=== PATIENT | female | born 1960 | race African-American/Black ===

== ENCOUNTER 2017-05-07 11:21 | Emergency (ER) | payer OTHER ==
[~2017-05-07] VITALS: Ht 167.6 cm; Wt 102.1 kg
[~2017-05-07 11:21] MED LIST: PHENERGAN6.25 MG/5 ORAL
[2017-05-07] MEDS ORDERED: Ranitidine 50mg/2ml Inj IV ONE (12:00)
[2017-05-07 12:34] LABS: APPEARANCE,URINE CLEAR; BASOPHILS % (AUTO) 1.6 % (0.0-2.0); EOSINOPHILS % (AUTO) 7.9 % (0.0-3.0); KETONES,URINE NEGATIVE (NEGATIVE); LEUKOCYTE ESTERASE ,URINE 1+ (NEGATIVE); LYMPHOCYTES % (AUTO) 46.8 % (20.0-45.0); MEAN CORPUSCULAR HEMOGLOBIN 29.8 PG (27.0-31.0); MEAN CORPUSCULAR HGB CONC 32.6 G/DL (32.0-36.0); MEAN CORPUSCULAR VOLUME 91 FL (80-99); MEAN PLATELET VOLUME 6.9 FL (6.5-10.1); MONOCYTES % (AUTO) 5.2 % (1.0-10.0); NEUTROPHILS % (AUTO) 38.6 % (45.0-75.0); NITRITE,URINE NEGATIVE (NEGATIVE); PH,URINE 8 (4.5-8.0); PLATELET COUNT 271 K/UL (150-450); PROTEIN,URINE NEGATIVE (NEGATIVE); RED BLOOD COUNT 4.58 M/UL (4.20-5.40); UROBILINOGEN,URINE 4 MG/DL (0.0-1.0)
[2017-05-07 12:50] LABS: BACTERIA,URINE FEW /HPF; RBC,URINE 0-2 /HPF (0 - 2); SQUAMOUS EPITHELIAL CELL,UR MODERATE /LPF (NONE/OCC)
[2017-05-07 12:51] VITALS: BP 103/78
[2017-05-07 13:04] LABS: ALANINE AMINOTRANSFERASE 30 U/L (3-33); ANION GAP 14 (5-15); ASPARTATE AMINO TRANSFERASE 30 U/L (5-40); CALCIUM 9.2 mg/dL (8.6-10.2); CARBON DIOXIDE 27 mEQ/L (20-30); CHLORIDE 99 mEQ/L (98-107); CREATININE 0.6 mg/dL (0.5-0.9); GLOMERULAR FILTRATION RATE > 60 mL/min (>60); HEMOLYSIS 9; LIPASE 33 U/L (< 60); POTASSIUM 3.9 mEQ/L (3.4-4.9); SODIUM 140 mEQ/L (135-145); TOTAL PROTEIN 7.6 g/dL (6.6-8.7)
[2017-05-07] MEDS ORDERED: ZOFRAN ODT4 MG ORAL (14:13)
[2017-05-07] MEDS ORDERED: TYLENOL EXTRA500 MG ORAL (14:13)
[2017-05-07 14:25] VITALS: BP 120/81
--- NOTE | 2017-05-07 16:43 | Diagnostic Imaging Report ---
Indication: Abdominal pain, nausea, vomiting x2 days Technique: [place]-scale and duplex images of the upper abdomen were obtained Comparison: Findings: Gallbladder demonstrates gallstones. No wall thickening or pericholecystic fluid. Technologist reports positive sonographic Sanders's sign. Common bile duct measures 7 mm in diameter. No intrahepatic biliary ductal dilatation. Liver demonstrates normal echogenicity, no focal abnormality. Portal vein and hepatic veins are patent. Pancreas is unremarkable. Spleen is unremarkable. Left kidney measures 13 cm in length. Right kidney measures 11.3 cm length. Both kidneys demonstrate normal echogenicity. There is no hydronephrosis. No focal abnormality . Abdominal aorta is partially obscured by bowel gas, visualized portions are non-aneurysmal . Impression: Cholelithiasis. Positive sonographic Sanders's sign raises possibility of acute cholecystitis. Correlate with clinical findings, consider hepatobiliary nuclear scan for further evaluation Mildly ectatic common bile duct. Downstream obstruction not completely excludable. Correlate with liver function tests, consider MRCP for further evaluation if clinically indicated Note incomplete visualization of the abdominal aorta
--- NOTE | 2017-05-08 15:36 | Emergency Room Report ---
History of Present Illness General Chief Complaint: Nausea Source: Patient Present Illness HPI 57-year-old female presents to ED complaining of abdominal pain nausea and vomiting since this morning. Start after she drank coffee. Pain is epigastric , 8 out of 10, sharp, radiating to the right side of abdomen. Patient has history of gastritis but states this feels different. Denies chest pain or shortness of breath. Denies fevers or chills. No other aggravating or relieving factors. Denies any other associated symptoms Allergies: Coded Allergies: ASPIRIN (Unverified Allergy, Unknown, 01/08/16) CODEINE (Unverified Allergy, Unknown, 01/08/16) PENICILLINS (Unverified Allergy, Unknown, 01/08/16) Uncoded Allergies: ASPRIN (Allergy, Unknown, 01/08/16) PENICILLIN (Allergy, Unknown, 01/08/16) Patient History Past Medical History: DM, GERD Past Surgical History: none Pertinent Family History: none Social History: Denies: alcohol use, drug use, smoking Last Menstrual Period: na Now: No Immunizations: UTD Reviewed Nursing Documentation: PMH: Agreed, PSxH: Agreed Nursing Documentation-PMH Past Medical History: No History, Except For Hx Diabetes: Yes Hx Gastrointestinal Problems: Yes - hyperthyroidism, reflux Review of Systems All Other Systems: negative except mentioned in HPI Physical Exam Vital Signs Date Time Temp Pulse Resp B/P Pulse Ox O2 Delivery O2 Flow Rate FiO2 05/07/17 11:32 98.2 79 18 124/83 99 Room Air Sp02 EP Interpretation: reviewed, normal General Appearance: no apparent distress, alert, GCS 15, non-toxic Head: normocephalic, atraumatic Eyes: bilateral eye PERRL, bilateral eye normal inspection ENT: hearing grossly normal, normal pharynx, no angioedema, normal voice Neck: full range of motion, supple/symm/no masses Respiratory: chest non-tender, lungs clear, normal breath sounds, speaking full sentences Cardiovascular #1: regular rate, rhythm, no edema Cardiovascular #2: 2+ carotid (R), 2+ carotid (L), 2+ radial (R), 2+ radial (L) , 2+ dorsalis pedis (R), 2+ dorsalis pedis (L) Gastrointestinal: normal bowel sounds, soft, non-distended, no guarding, no rebound, tenderness - RUQ Rectal: deferred Genitourinary: normal inspection, no CVA tenderness Musculoskeletal: back normal, gait/station normal, normal range of motion, non- tender Neurologic: alert, oriented x3, responsive, motor strength/tone normal, sensory intact, speech normal Psychiatric: judgement/insight normal, memory normal, mood/affect normal, no suicidal/homicidal ideation Reflexes: 3+ bicep (R), 3+ bicep (L), 3+ tricep (R), 3+ tricep (L), 3+ knee (R) , 3+ knee (L) Skin: normal color, no rash, warm/dry, well hydrated Lymphatic: no adenopathy Medical Decision Making Diagnostic Impression: Primary Impression: Cholelithiasis Qualified Codes: K80.80 - Other cholelithiasis without obstruction Additional Impression: Gastritis Qualified Codes: K29.00 - Acute gastritis without bleeding ER Course Hospital Course 57-year-old F presents to ED with RUQ abdominal pain, vomiting Differential diagnosis includes - pyelonephritis, kidney stone, gastritis, cholecystitis Clinical course Patient placed on stretcher. After initial history and physical I ordered labs , IV fluids, pain medications and US Labs - no leukocytosis, electrolytes ok, LFTs normal, UA unremarkable US shows gallstones, no GB thickening, negative murphys sign, CBD normal Upon reassessment, patient states pain has improved. I discussed with patient options for outpatient surgical referral given patient has had 3-4 episodes of pain. Recommend low-fat diet as fast food greasy food can trigger the symptoms I feel this is a highly complex case requiring extensive working including EKG/ Rhythm strip, Xray/CT/US, Blood/urine lab work, repeat exams while in ED, and administration of strong opiates/narcotics for pain control, admission to hospital or close patient follow up. Diagnosis - cholelithiasis, gastritis Stable and discharged to home with prescription for Tylenol, Zofran. Followup with PMD. Return to ED if symptoms recur or worsen Labs Test 05/07/17 12:15 White Blood Count 8.0 K/UL (4.8-10.8) Red Blood Count 4.58 M/UL (4.20-5.40) Hemoglobin 13.6 G/DL (12.0-16.0) Hematocrit 41.8 % (37.0-47.0) Mean Corpuscular Volume 91 FL (80-99) Mean Corpuscular Hemoglobin 29.8 PG (27.0-31.0) Mean Corpuscular Hemoglobin Concent 32.6 G/DL (32.0-36.0) Red Cell Distribution Width 11.0 % (11.6-14.8) Platelet Count 271 K/UL (150-450) Mean Platelet Volume 6.9 FL (6.5-10.1) Neutrophils (%) (Auto) 38.6 % (45.0-75.0) Lymphocytes (%) (Auto) 46.8 % (20.0-45.0) Monocytes (%) (Auto) 5.2 % (1.0-10.0) Eosinophils (%) (Auto) 7.9 % (0.0-3.0) Basophils (%) (Auto) 1.6 % (0.0-2.0) Urine Color Yellow Urine Appearance Clear Urine pH 8 (4.5-8.0) Urine Specific [place] 1.015 (1.005-1.035) Urine Protein Negative (NEGATIVE) Urine Glucose (UA) Negative (NEGATIVE) Urine Ketones Negative (NEGATIVE) Urine Occult Blood Negative (NEGATIVE) Urine Nitrite Negative (NEGATIVE) Urine Bilirubin Negative (NEGATIVE) Urine Urobilinogen 4 MG/DL (0.0-1.0) Urine Leukocyte Esterase 1+ (NEGATIVE) Urine RBC 0-2 /HPF (0 - 2) Urine WBC 2-4 /HPF (0 - 2) Urine Squamous Epithelial Cells Moderate /LPF (NONE/OCC) Urine Bacteria Few /HPF (NONE) Sodium Level 140 mEQ/L (135-145) Potassium Level 3.9 mEQ/L (3.4-4.9) Chloride Level 99 mEQ/L (98-107) Carbon Dioxide Level 27 mEQ/L (20-30) Anion Gap 14 (5-15) Blood Urea Nitrogen 4 mg/dL (7-23) Creatinine 0.6 mg/dL (0.5-0.9) Estimat Glomerular Filtration Rate > 60 mL/min (>60) Glucose Level 142 mg/dL (74-106) Calcium Level 9.2 mg/dL (8.6-10.2) Total Bilirubin 0.4 mg/dL (0.0-1.2) Aspartate Amino Transf (AST/SGOT) 30 U/L (5-40) Alanine Aminotransferase (ALT/SGPT) 30 U/L (3-33) Alkaline Phosphatase 82 U/L (35-104) Total Protein 7.6 g/dL (6.6-8.7) Albumin 3.8 g/dL (3.5-5.2) Globulin 3.8 g/dL Albumin/Globulin Ratio 1.0 (1.0-2.7) Lipase 33 U/L (< 60) CT/MRI/US Diagnostic Results CT/MRI/US Diagnostic Results : Imaging Test Ordered: Abd US Impression cholelithiasis, no cholecystitis Last Vital Signs Date Time Temp Pulse Resp B/P Pulse Ox O2 Delivery O2 Flow Rate FiO2 05/07/17 14:25 70 20 120/81 100 Room Air 05/07/17 12:51 97.1 Status: improved Disposition: HOME, SELF-CARE Condition: Stable Scripts Ondansetron Odt* (ZOFRAN ODT*) 4 Mg Tab.rapdis 4 MG ORAL Q6H Y for Nausea & Vomiting, #30 TAB 0 Refills Prov: EDGARDO MEIER M.D. 05/07/17 Acetaminophen* (TYLENOL EXTRA STRENGTH*) 500 Mg Tablet 500 MG ORAL Q8H Y for Prn Headache/Temp > 101, #30 TAB 0 Refills Prov: EDGARDO MEIER M.D. 05/07/17 Patient Instructions: Cholelithiasis, [id number] EDGARDO MEIER M.D. May 08, 2017 15:36
== END 2017-05-07 14:29 | disposition home or self-care (01) ==
LOC: EMR 12:10
DX: K80.80 Other cholelithiasis without obstruction (principal); K29.00 Acute gastritis without bleeding; Z88.6 Allergy status to analgesic agent; Z88.0 Allergy status to penicillin; E11.9 Type 2 diabetes mellitus without complications; K21.9 Gastro-esophageal reflux disease without esophagitis
CPT/HCPCS: 36415; 76700; 80053; 81003; 83690; 85025; 96360; 96374; 96375; 99284; J2405; J2780

== ENCOUNTER 2019-01-23 10:16 | Emergency (ER) | payer OTHER ==
[~2019-01-23] VITALS: Ht 170.2 cm; Wt 102.1 kg
[~2019-01-23 10:16] MED LIST changes: +TYLENOL EXTRA500 MG ORAL; +ZOFRAN ODT4 MG ORAL
[2019-01-23] MEDS ORDERED: TAMIFLU75 MG ORAL (10:25)
[2019-01-23] MEDS ORDERED: NEURONTIN300 MG ORAL (10:30)
[2019-01-23] MEDS ORDERED: LOSARTAN POTAS100 MG ORAL (10:30)
[2019-01-23] MEDS ORDERED: VENTOLIN HFA18 GM INH (10:30)
[2019-01-23] MEDS ORDERED: CYCLOBENZAPRIN7.5 MG ORAL (10:30)
[2019-01-23] MEDS ORDERED: OMEPRAZOLE20 M2 ORAL (10:30)
[2019-01-23] MEDS ORDERED: METHIMAZOLE10 MG PO (10:30)
[2019-01-23] MEDS ORDERED: LIPITOR80 MG ORAL (10:30)
[2019-01-23] MEDS ORDERED: Clindamycin 150mg cap ORAL ONE (10:45)
--- NOTE | 2019-01-23 10:47 | Emergency Room Report ---
History of Present Illness General Chief Complaint: Flu Like Symptoms Source: Patient Present Illness HPI Patient presents with complaints of sore throat cough and nasal congestion Reports that symptoms started on Friday She saw her primary physician who placed her on anti-flu medicine And cough medicine however she reports that the throat is worsening with pain especially with swallowing She feels that her voice is more hoarse Denies any chest pain She feels that her asthma is also flared up at times denies any vomiting Denies any recent travel Denies any neck pain or photophobia Allergies: Coded Allergies: ASPIRIN (Unverified Allergy, Unknown, 01/08/16) CODEINE (Unverified Allergy, Unknown, 01/08/16) PENICILLINS (Unverified Allergy, Unknown, 01/08/16) Uncoded Allergies: ASPRIN (Allergy, Unknown, 01/08/16) PENICILLIN (Allergy, Unknown, 01/08/16) Patient History Past Medical History: see triage record Pertinent Family History: none Now: No : 7 Reviewed Nursing Documentation: PMH: Agreed; PSxH: Agreed Nursing Documentation-PMH Hx Diabetes: Yes Hx Gastrointestinal Problems: Yes - hyperthyroidism, reflux Review of Systems All Other Systems: negative except mentioned in HPI Physical Exam Vital Signs Date Time Temp Pulse Resp B/P (MAP) Pulse Ox O2 Delivery O2 Flow Rate FiO2 01/23/19 10:21 98.2 96 19 119/73 95 Room Air Sp02 EP Interpretation: reviewed, normal General Appearance: no apparent distress Head: normocephalic, atraumatic Eyes: bilateral eye PERRL, bilateral eye EOMI ENT: no angioedema, uvula midline, pharyngeal erythema, other - Poor dentition and also adentulous in the front Neck: supple, no meningismus Respiratory: lungs clear, no retraction, no accessory muscle use Cardiovascular #1: regular rate, rhythm Gastrointestinal: non tender, soft Genitourinary: no CVA tenderness Musculoskeletal: normal inspection Neurologic: alert, oriented x3, cargo operations agent III-XII nml as tested Skin: normal color, no rash Lymphatic: no adenopathy Medical Decision Making Diagnostic Impression: Primary Impression: Pharyngitis ER Course Given the patient's history and presentation multiple differentials in consideration Including but not limited to retropharyngeal abscess peritonsillar abscess, pharyngitis, flu symptoms Given the patient's throat examination erythema Patient appears to have likely bacterial pharyngitis as well Patient has already been on Tamiflu and does not appear to be improving symptoms And will have attempt on antibiotics and close outpatient reevaluation Last Vital Signs Date Time Temp Pulse Resp B/P (MAP) Pulse Ox O2 Delivery O2 Flow Rate FiO2 01/23/19 10:21 98.2 96 19 119/73 95 Room Air Status: improved Disposition: HOME, SELF-CARE Condition: Improved Scripts Ibuprofen* (MOTRIN*) 600 Mg Tablet 600 MG ORAL Q8H PRN for For Pain, #20 TAB 0 Refills Prov: Rolan Kay DO 01/23/19 Clindamycin Hcl (CLINDAMYCIN HCL) 300 Mg Capsule 300 MG ORAL THREE TIMES A DAY, #21 CAP Prov: Rolan Kay DO 01/23/19 Additional Instructions: Patient is provided with the discharge instructions notified to follow up with primary doctor in the next 2-3 days otherwise return to the er with any worsening symptoms. Please note that this report is being documented using [employer] technology. This can lead to erroneous entry secondary to incorrect interpretation by the dictating instrument. Rolan Kay DO Jan 23, 2019 10:47
[2019-01-23] MEDS ORDERED: CLINDAMYCIN HC300 MG ORAL (10:48)
[2019-01-23] MEDS ORDERED: IBUPROFEN600 MG ORAL (10:48)
[2019-01-23 11:08] VITALS: BP 119/73
[2019-01-23 11:09] VITALS: BP 119/73
--- NOTE | 2019-01-23 11:09 | NUR ---
ED Nurse Note:pt. came with flu like symptoms cough and sore throat, given po meds
--- NOTE | 2019-01-23 11:11 | NUR ---
ER DISCHARGE NOTE: Patient is cleared to be discharged per ERMD, pt is aox4, on room air, with stable vital signs. pt was given dc and prescription instructions, pt was able to verbalize understanding, pt is able to ambulate with steady gait. pt took all belongings.
== END 2019-01-23 11:09 | disposition home or self-care (01) ==
LOC: EMR 10:45
DX: J02.9 Acute pharyngitis, unspecified (principal); Z88.0 Allergy status to penicillin; Z88.6 Allergy status to analgesic agent; Z88.5 Allergy status to narcotic agent
CPT/HCPCS: 99282